=== PATIENT | male | born 1965 | race Caucasian/White ===

== ENCOUNTER 2018-12-16 11:07 | Emergency (ER) | payer BC, OTHER ==
[2018-12-16 12:34] LABS: #Basophils 0.1 thou/uL (0.0-0.2); #Eosinphils 0.2 thou/uL (0.0-0.7); #Lymphocytes 2.5 thou/uL (1.20-3.40); #Monocytes 0.6 thou/uL (0.11-0.59); #Neutrophils 6.6 thou/uL (1.40-6.50); %Basophils 0.9 % (0.0-1.0); %Eosinophils 2.1 % (0.0-10.0); %Lymphocytes 24.9 % (21.0-51.0); %Monocytes 5.7 % (0.0-10.0); %Neutrophils 66.4 % (42.0-75.0); Hemoglobin 16.3 g/dL (14.0-18.0); Mean Corpuscular HGB CONC 32.1 g/dL (32.0-36.0); Mean Corpuscular Hemoglobin 29.7 pg (27.0-31.0); Mean Corpuscular Volume 92.4 fL (78.0-98.0); Mean Platelet Volume 7.9 fL (7.4-10.4); Platelet Count 220 thou/uL (130-400); RBC Distribution Width 12.7 % (11.5-14.5); White Blood Cell (WBC) Count 9.9 thou/uL (4.8-10.8)
--- NOTE | 2018-12-16 15:22 | MRI ---
MRI LUMBAR SPINE WITHOUT CONTRAST: Date: 12/16/18 Multiplanar, multisequential imaging lumbar spine obtained. INDICATION: Low back pain. Bilateral leg weakness and pain. FINDINGS: Lumbar vertebra maintain normal height. Vertebral body signal appears normal. There is mild loss of d isc space at the L1-2 level. The other disc spaces are preserved. There are mild end plate deformitie s seen at T12-L1, L1-2, L2-3, and L3-4 levels. At L1-2, there is no significant disc bulge or protrusion. No central canal or foraminal stenosis. At L2-3, there is no disc bulge or protrusion. Mild facet arthrosis. No central canal or foraminal st enosis. At L3-4, there is no significant disc bulge or protrusion. Mild facet arthrosis and hypertrophy. No c entral canal or foraminal stenosis. At L4-5, there is no significant disc bulge or protrusion. Mild facet arthrosis. No central canal or foraminal stenosis. At L5-S1, there is mild disc bulge. No evidence of disc protrusion. Mild facet arthrosis. No central canal or foraminal stenosis. Evidence of a small right renal cyst measuring 1.5 cm. IMPRESSION: Mild degenerative disc changes as described. No significant disc bulge or protrusion. There is mild f acet arthrosis throughout the lumbar spine; however, no central canal or foraminal stenosis identifie d. POS: [facility]
== END 2018-12-16 14:26 | disposition home or self-care (01) ==
LOC: ERS 11:07
DX: I70.213 Atherosclerosis of native arteries of extremities with intermittent claudication, bilateral legs (principal); F17.210 Nicotine dependence, cigarettes, uncomplicated
CPT/HCPCS: 72148; 85025

== ENCOUNTER 2019-01-05 07:21 | Outpatient (CLI) | payer OTHER ==
--- NOTE | 2019-01-05 10:07 | CT ---
CONTRAST ENHANCED CTA AORTA AND BILATERAL RUNOFF: HISTORY: Peripheral vascular disease. Claudication. FINDINGS: Contrast-enhanced CTA images abdomen and pelvis and runoff obtained. Two-D and 3D reconstructed imag es performed on an independent 3D work station. The lung bases are unremarkable. Some areas of lung parenchymal scarring are seen in the posterior a spect of the lower lobes. No evidence of free intraperitoneal air or fluid seen. The liver and spleen are unremarkable. The gallbladder and pancreas are unremarkable. Marked atherosclerotic calcification of the abdominal aorta and iliac arteries seen. There is distal infrarenal abdominal aortic atherosclerotic changes with calcified and noncalcified p laques. Extensive noncalcified plaque is seen reducing the caliber of the infrarenal abdominal aorta . The plaques extend into the right and left common iliac arteries. There is approximately 80% prox imal right common iliac and approximate 80% left common iliac artery stenosis at the origin of the ri ght and left common iliac arteries. Good flow is seen in the right and left external iliac, common femoral arteries, superficial femoral arteries, popliteal arteries, as well as anterior tibial, posterior tibial, and peroneal arteries chema aterally. The SMA, celiac, DEYA, and renal arteries bilaterally are patent. The kidneys are unremar kable. Small bowel and colon are unremarkable. The appendix is unremarkable. No evidence of osseous lesions seen. IMPRESSION: Circumferential distal abdominal aortic atherosclerosis with calcified extensive noncalcified atheros clerotic plaques. There is severe bilateral proximal common iliac artery stenosis in the proximalmos t aspect of the right and left common iliac arteries. POS: [facility]
[2019-01-05] MEDS ORDERED: Iopamidol 370 76% 100 ML VIAL ONE (11:56)
== END 2019-01-05 07:22 | disposition home or self-care (01) ==
LOC: CT 07:21
PROVIDERS: ATTEND Thoracic Surgery (Cardiothoracic Vascular Surgery)
DX: I73.9 Peripheral vascular disease, unspecified (principal); I70.0 Atherosclerosis of aorta
CPT/HCPCS: 75635; Q9967

== ENCOUNTER 2019-01-13 08:49 | Outpatient (CLI) | payer OTHER ==
[2019-01-13 09:35] LABS: Anion Gap 13 mmol/L (10-20); BUN (Urea Nitrogen) 18 mg/dL (8.4-25.7); Calc. Creatinine Clearance 0 mL/min (70-130); Calcium 9.7 mg/dL (7.8-10.44); Carbon Dioxide 26 mmol/L (22-29); Chloride 105 mmol/L (98-107); Estimated GFR-MDRD 68; Glucose 102 mg/dL (70-105); Potassium 4.9 mmol/L (3.5-5.1); Sodium 139 mmol/L (136-145)
== END 2019-01-13 08:50 | disposition home or self-care (01) ==
LOC: LABBT 08:49
PROVIDERS: ATTEND Thoracic Surgery (Cardiothoracic Vascular Surgery)
DX: Z01.812 Encounter for preprocedural laboratory examination (principal); I73.9 Peripheral vascular disease, unspecified
CPT/HCPCS: 80048

== ENCOUNTER 2019-01-19 09:58 | Day surgery (SDC) | payer OTHER ==
[2019-01-19 11:04] LABS: #Basophils 0.1 thou/uL (0.0-0.2); #Eosinphils 0.3 thou/uL (0.0-0.7); #Lymphocytes 2.1 thou/uL (1.20-3.40); #Monocytes 0.4 thou/uL (0.11-0.59); #Neutrophils 4.2 thou/uL (1.40-6.50); %Basophils 0.8 % (0.0-1.0); %Eosinophils 4.6 % (0.0-10.0); %Lymphocytes 29.9 % (21.0-51.0); %Monocytes 5.2 % (0.0-10.0); %Neutrophils 59.5 % (42.0-75.0); Mean Corpuscular HGB CONC 30.9 g/dL (32.0-36.0); Mean Corpuscular Hemoglobin 28.9 pg (27.0-31.0); Mean Corpuscular Volume 93.4 fL (78.0-98.0); Mean Platelet Volume 7.9 fL (7.4-10.4); Platelet Count 219 thou/uL (130-400); RBC Distribution Width 12.7 % (11.5-14.5); Red Blood Cell (RBC) Count 5.89 mill/uL (4.70-6.10); White Blood Cell (WBC) Count 7.1 thou/uL (4.8-10.8)
[2019-01-19 11:24] LABS: Anion Gap 14 mmol/L (10-20); BUN (Urea Nitrogen) 17 mg/dL (8.4-25.7); Calc. Creatinine Clearance 0 mL/min (70-130); Calcium 9.7 mg/dL (7.8-10.44); Carbon Dioxide 23 mmol/L (22-29); Chloride 106 mmol/L (98-107); Estimated GFR-MDRD 74; Glucose 93 mg/dL (70-105); Potassium 4.4 mmol/L (3.5-5.1); Sodium 139 mmol/L (136-145)
[2019-01-19] MEDS ORDERED: Nitroglycerin 100MG/250ML BOT 0 ML ONE (11:50)
[2019-01-19] MEDS ORDERED: Heparin 0 ML ONE (11:50)
[2019-01-19] MEDS ORDERED: Heparin 10,000 UNITS/1 ML VIAL ONE (11:50)
[2019-01-19] MEDS ORDERED: Midazolam HCl 2 mg/2 ml Vial ONE (12:23)
[2019-01-19] MEDS ORDERED: Fentanyl 100 MCG/2 ML VIAL ONE ×3 (12:27→13:29)
[2019-01-19] MEDS ORDERED: Iopamidol 370 76% 50 ML VIAL FS ONE (14:20)
--- NOTE | 2019-01-19 15:15 | OP ---
DATE OF PROCEDURE: 01/19/2019 PREOPERATIVE DIAGNOSIS: Peripheral vascular disease with bilateral lower extremity rest pain. POSTOPERATIVE DIAGNOSIS: Peripheral vascular disease with bilateral lower extremity rest pain. PROCEDURES PERFORMED: 1. Ultrasound-guided bilateral femoral artery access. 2. Abdominal aortogram. 3. Left common iliac artery angiogram. 4. Right common iliac artery angiogram. 5. Left primary stenting of the common iliac artery with a 9 x 37 Express LD stent taken to 8 mmHg. 6. Right primary stenting with a 9 x 37 Express LD stent taken to 8 mmHg. TOTAL CONTRAST: 32 mL. FLUORO TIME: 6.4 minutes. DESCRIPTION OF PROCEDURE: After consent was obtained, the patient was brought to catheterization lab, placed in supine position on the laborer laboratory table. Appropriate monitoring was placed. The patient was given IV sedation consisting of 1 mg Versed and 25 mcg of fentanyl. The groins were prepped and draped in the usual sterile fashion. Using ultrasound guidance, the right common femoral artery was accessed and a 6-Cypriot marker sheath was placed into the common iliac artery. Hand-injected arteriogram was performed, confirming critical stenosis at the aortic bifurcation. The right common iliac artery was opened, but critical stenosis. The left common iliac artery was completely occluded. The sheath was passed over guidewire with the dilator into the abdominal aorta. Hand-injected aortogram was performed again confirming the location of the stenosis. Using ultrasound guidance, the left common femoral artery was accessed after anesthetizing with 1% lidocaine and a 6-Cypriot marker sheath passed into the external iliac artery. Hand-injected arteriogram was performed showing our area of occlusion. The occlusion was very short and was crossed with an angled Berenstein catheter and Bentson wire. Hand-injected arteriogram was performed in the aorta confirming intraluminal location. The 6-Cypriot sheath was passed over the guidewire into the abdominal aorta. After measuring, a 9 x 37 stent was selected for each iliac artery. The sheaths were exchanged for 7-Cypriot sheath. The tips of the sheaths were positioned in the abdominal aorta. Stents were positioned and the sheath withdrawn back into the external iliac artery. Once the stents were appropriately positioned, they were slowly inflated until the stents were fixed with dog-boning of the balloon. They were then inflated to their nominal pressure of 8 mmHg. The balloons were deflated and the balloon deployment catheter was removed. Hand-injected aortograms showed an excellent result from the stenting with no residual stenosis and good stent apposition to the iliac wall throughout. ProGlide closure was performed bilaterally with good hemostasis. The patient tolerated the procedure well and was transferred to the recovery area in stable condition. He will be discharged to home later today. Job ID: [id number]
--- NOTE | 2019-01-19 18:37 | HP ---
DATE OF SERVICE: HISTORY OF PRESENT ILLNESS: Mr. Church is a 53-year-old gentleman, who has had chronic bilateral leg pain consistent with claudication, which has progressed and now having rest pain. He came to the emergency department seeking therapeutic help. PAST MEDICAL HISTORY: None. PAST SURGICAL HISTORY: Deviated septum surgery. SOCIAL HISTORY: He smokes a pack of cigarettes a day. ALLERGIES: NONE. MEDICATIONS: None. PHYSICAL EXAMINATION: VITAL SIGNS: Heart rate is 80 and regular. Blood pressure is 160/70. LUNGS: Clear bilaterally. HEART: Rhythm is regular. ABDOMEN: Soft and nontender. EXTREMITIES: No edema. VASCULAR: He has palpable carotid and radial pulses bilaterally. Femorals are dopplerable. I reviewed his CTA, which shows aortoiliac occlusive disease and he needs angiograms and potential kissing iliac stents. Discussed this with the patient. He is agreeable to proceed and signed. Job ID: [id number]
== END 2019-01-19 16:03 | disposition home or self-care (01) ==
LOC: ERS 09:58 → CCL 12:00
PROVIDERS: ATTEND Thoracic Surgery (Cardiothoracic Vascular Surgery)
PROC: 04VC3DZ Restriction of Right Common Iliac Artery with Intraluminal Device, Percutaneous Approach (ICD-10-PCS; principal; 2019-01-19)
PROC: 04VD3DZ Restriction of Left Common Iliac Artery with Intraluminal Device, Percutaneous Approach (ICD-10-PCS; principal; 2019-01-19)
DX: I70.223 Atherosclerosis of native arteries of extremities with rest pain, bilateral legs (principal); E78.5 Hyperlipidemia, unspecified; I10 Essential (primary) hypertension; F17.210 Nicotine dependence, cigarettes, uncomplicated
CPT/HCPCS: 37220; 37221; 37222; 37223; 76942; 80048; 85025; 99152; C1760; C1769; C1876; J1644; J2250; J3010; Q9967

== ENCOUNTER 2020-08-31 06:32 | Outpatient (CLI) | payer OTHER ==
--- NOTE | 2020-08-29 22:47 | CON ---
DATE OF CONSULTATION: PREOPERATIVE HISTORY AND PHYSICAL HISTORY OF PRESENT ILLNESS: Mr. Church is a 55-year-old gentleman, who has history of peripheral vascular disease. He is status post bilateral kissing iliac stents in 2019. After initial good results, he has had continued progression of his claudication. He now has left leg claudication at minimal distances. He has no right leg symptoms. He has had no rest pain. Continues to smoke cigarettes. He underwent CT angiogram, which shows in-stent restenoses bilaterally. We discussed in-stent restenoses and made plans for aortobifemoral bypass. He also has aortic stenosis with soft plaque in his aorta. PAST MEDICAL HISTORY: 1. Peripheral vascular disease. 2. Dyslipidemia. PAST SURGICAL HISTORY: 1. Left rotator cuff repair. 2. Kissing iliac stents. SOCIAL HISTORY: He continues to smoke. He does not use alcohol. ALLERGIES: NONE. CURRENT MEDICATIONS: Aspirin 325 mg daily. PHYSICAL EXAMINATION: GENERAL: This is a well-developed, well-nourished man, resting comfortably. VITAL SIGNS: Temperature is 98.6, pulse is 70 and regular, and blood pressure is 142/82. Height is 6 feet 1 inch, weight is 207 pounds. HEENT: Sclerae nonicteric. Pupils are equal and round bilaterally. NECK: Supple without bruit. He has no adenopathy. HEART: Rhythm is regular without murmur. LUNGS: Clear to auscultation bilaterally. ABDOMEN: Soft and nontender. There are no scars. No masses. EXTREMITIES: There is no edema. VASCULAR: He has palpable carotid and radial pulses bilaterally. Femoral pulses are lightly palpable. ASSESSMENT AND PLAN: I have discussed aortobifemoral bypass with him. He is agreeable to proceed. We will make plans early September. Job ID: [id number]
--- NOTE | 2020-08-31 11:14 | RAD ---
Chest 2 views HISTORY: Preop. FINDINGS: No comparison. Cardiac silhouette and pulmonary vasculature are unremarkable. Mediastinum is midline. No confluent airspace consolidation, pneumothorax, or pleural fluid. Calcified granulomata are consistent with healed granulomatous disease. Irregularity at the lateral a spect of the right clavicle may represent an old injury. IMPRESSION : No active cardiopulmonary abnormalities are demonstrated.
[2020-08-31 11:45] LABS: Hemoglobin 16.6 g/dL (14.0-18.0); Mean Corpuscular HGB CONC 33.9 G/DL (32.0-36.0); Mean Corpuscular Hemoglobin 31.3 PG (27.0-33.0); Mean Corpuscular Volume 92.1 fl (80.0-100.0); Mean Platelet Volume 10.1 fl (7.4-10.4); Platelet Count 251 10x3/uL (130-400); RBC Distribution Width 13.5 % (11.5-14.5); Red Blood Cell (RBC) Count 5.31 10x6/uL (4.40-5.80); White Blood Cell (WBC) Count 8.4 10x3/uL (4.5-11.0)
[2020-08-31 11:57] LABS: Anion Gap 13 mmol/L (10-20); BUN (Urea Nitrogen) 20 mg/dL (8.4-25.7); Calc. Creatinine Clearance 0 mL/min (70-130); Calcium 9.3 mg/dL (7.8-10.44); Carbon Dioxide 26 mmol/L (22-29); Chloride 108 mmol/L (98-107); Estimated GFR-MDRD 69; Glucose 96 mg/dL (70-105); Potassium 5.1 mmol/L (3.5-5.1); Sodium 142 mmol/L (136-145)
[2020-08-31 17:05] LABS: SARS-CoV-2 MS2 Positive; SARS-CoV-2 N Gene Negative; SARS-CoV-2 S Gene Negative; SARS-CoV-2 by NAA Not Detected (NotDetected); SARS-CoV-2 orf1ab Negative
== END 2020-08-31 06:33 | disposition home or self-care (01) ==
LOC: LABBT 06:32
PROVIDERS: ATTEND Thoracic Surgery (Cardiothoracic Vascular Surgery)
DX: Z01.818 Encounter for other preprocedural examination (principal); Z20.828 Contact with and (suspected) exposure to other viral communicable diseases; I73.9 Peripheral vascular disease, unspecified; I74.09 Other arterial embolism and thrombosis of abdominal aorta
CPT/HCPCS: 71046; 80048; 85027; 87635; U0003

== ENCOUNTER 2020-08-31 10:30 | Inpatient (IN) | payer OTHER ==
[2020-09-05] MEDS ORDERED: Bupivacaine PF 0.5% 30 ML VIAL ONE (06:39)
[2020-09-05] MEDS ORDERED: Heparin 5,000 UNITS/ML VIAL ONE (06:39)
[2020-09-05] MEDS ORDERED: EPINEPHrine 1 MG/ML AMP ONE (06:39)
[2020-09-05] MEDS ORDERED: Protamine Sulfate 50 MG/5 ML VIAL ONE (06:39)
[2020-09-05] MEDS ORDERED: Heparin 10,000 UNITS/1 ML VIAL 30,000 UNITS in Sodium Chloride 0.9% 1,000 ML IVPB SCH (06:45)
[2020-09-05] MEDS ORDERED: Phenylephrine 10 MG/ML VIAL ONE (07:17)
[2020-09-05] MEDS ORDERED: Fentanyl 100 MCG/2 ML VIAL ONE ×3 (07:17→11:55)
[2020-09-05] MEDS ORDERED: Naloxone HCl 0.4 mg/ml Vial IV PRN (10:05)
[2020-09-05] MEDS ORDERED: fentaNYL Citrate/PF 2,000 MCG in Sodium Chloride 0.9% 60 ML IV PRN (10:05)
[2020-09-05] MEDS ORDERED: diphenhydrAMINE 50 MG/ML VIAL IM PRN (10:05)
[2020-09-05] MEDS ORDERED: Zolpidem Tartrate 5 MG TAB PO PRN (10:05)
[2020-09-05] MEDS ORDERED: Ondansetron HCl/PF 4 MG/2 ML Vial IVP PRN (10:05)
[2020-09-05] MEDS ORDERED: Ondansetron PF 4 MG/2 ML Vial IVP PRN ×2 (10:05→11:09)
[2020-09-05] MEDS ORDERED: Promethazine HCl 25 MG/ML VIAL SLOW IVP PRN (10:05)
[2020-09-05] MEDS ORDERED: diphenhydrAMINE 50 MG/ML VIAL IVP PRN (10:05)
[2020-09-05] MEDS ORDERED: HYDROmorphone 2 MG/ML VIAL SLOW IVP PRN (10:05)
[2020-09-05] MEDS ORDERED: diphenhydrAMINE 25 MG CAP PO PRN (10:05)
[2020-09-05] MEDS ORDERED: Promethazine HCl 25 MG/ML VIAL IM PRN ×2 (10:05)
[2020-09-05] MEDS ORDERED: HYDROmorphone 0.5 MG/0.5 ML SYRINGE ONE ×3 (10:10→11:24)
[2020-09-05] MEDS ORDERED: Communication Order-Pharmacy FS PRN (10:15)
[2020-09-05] MEDS ORDERED: Phenylephrine 40 MG in Sodium Chloride 0.9% 250 ML 246 ML IVPB PRN (11:09)
[2020-09-05] MEDS ORDERED: hydrALAZINE 20 MG/ML VIAL SLOW IVP PRN (11:09)
[2020-09-05] MEDS ORDERED: Nitroglycerin 50 MG/250 ML BOT 250 ML IVPB PRN (11:09)
[2020-09-05] MEDS ORDERED: traMADol HCl 50 MG TAB PO PRN ×2 (11:09)
[2020-09-05] MEDS ORDERED: Acetaminophen 325 MG TAB PO PRN (11:09)
[2020-09-05 13:32] VITALS: BMI 27.6
[2020-09-05] MEDS ORDERED: Glycopyrrolate 0.2 MG/ML 5 ML SYRINGE ONE (13:38)
[2020-09-05] MEDS ORDERED: PROPOFOL 200 MG/20 ML VIAL ONE (13:38)
[2020-09-05] MEDS ORDERED: PHENYLEPHRINE-NS 100 MCG/ML 10 ML SYRINGE ONE (13:38)
[2020-09-05] MEDS ORDERED: ePHEDrine 50 MG/ML VIAL ONE (13:38)
[2020-09-05] MEDS ORDERED: Ondansetron PF 4 MG/2 ML Vial ONE (13:38)
[2020-09-05] MEDS ORDERED: Rocuronium Bromide 10 MG/ML (10ML VIAL) ONE (13:38)
[2020-09-05] MEDS ORDERED: Dexamethasone 20 MG/5 ML VIAL ONE (13:38)
[2020-09-05] MEDS ORDERED: Ketorolac Tromethamine 30 MG/ML VIAL ONE (13:38)
[2020-09-05] MEDS ORDERED: Lidocaine 1% PF 5 ML VIAL ONE (13:38)
[2020-09-05] MEDS: CEFAZOLIN 2 GM in Premix Bag 1 BAG IVPB SCH (15:31)
[2020-09-05] MEDS: Sodium Chloride 0.9% 1,000 ML IV SCH (15:32)
[2020-09-06] MEDS: CEFAZOLIN 2 GM in Premix Bag 1 BAG IVPB SCH ×2 (00:03→08:03)
[2020-09-06] MEDS: Sodium Chloride 0.9% 1,000 ML IV SCH ×3 (02:39→14:55)
[2020-09-06 03:57] LABS: #Basophils 0.1 thou/uL (0.0-0.2); #Lymphocytes 1.9 thou/uL (1.20-3.40); %Basophils 0.8 % (0.0-1.0); %Eosinophils 0.2 % (0.0-10.0); %Lymphocytes 17.1 % (21.0-51.0); %Monocytes 9.4 % (0.0-10.0); %Neutrophils 72.5 % (42.0-75.0); Hemoglobin 14.7 g/dL (14.0-18.0); Mean Corpuscular HGB CONC 33.2 g/dL (32.0-36.0); Mean Corpuscular Hemoglobin 30.9 pg (27.0-31.0); Mean Corpuscular Volume 93.1 fL (78.0-98.0); Mean Platelet Volume 7.4 fL (7.4-10.4); Platelet Count 215 thou/uL (130-400); RBC Distribution Width 12.6 % (11.5-14.5); Red Blood Cell (RBC) Count 4.75 mill/uL (4.70-6.10)
[2020-09-06 04:25] LABS: Anion Gap 13 mmol/L (10-20); BUN (Urea Nitrogen) 18 mg/dL (8.4-25.7); Calc. Creatinine Clearance 97 mL/min (70-130); Calcium 8.2 mg/dL (7.8-10.44); Carbon Dioxide 23 mmol/L (22-29); Chloride 103 mmol/L (98-107); Estimated GFR-MDRD 66; Glucose 113 mg/dL (70-105); Potassium 4.3 mmol/L (3.5-5.1); Sodium 135 mmol/L (136-145)
--- NOTE | 2020-09-06 07:14 | OP ---
DATE OF PROCEDURE: 09/05/2020 PREOPERATIVE DIAGNOSIS: Aortoiliac occlusive disease. POSTOPERATIVE DIAGNOSIS: Aortoiliac occlusive disease. PROCEDURE PERFORMED: Aortobifemoral bypass utilizing a 14 x 7 Hemashield bifurcated graft. HOME APPLIANCE INSTALLER: Khris Jenkins MD ANESTHESIA: General endotracheal by Phani Gonzalez MD ESTIMATED BLOOD LOSS: 150 mL. CELL SAVER: 240 mL. CRYSTALLOID: 1200 mL. DESCRIPTION OF PROCEDURE: After consent was obtained, the patient was brought to the operating room and placed in supine position on the operating table. Appropriate central line and monitors were placed. General endotracheal anesthesia was induced. Abdomen and upper thighs were prepped and draped in usual sterile fashion. Skin incision was made on the abdomen. Dissection through the fascia was obtained with electrocautery. Peritoneum was entered and peritoneal incision extended. [place] and [place] retractors were placed. Duodenum was mobilized off the anterior wall of the aorta. Retroperitoneum was entered. The aorta and iliac bifurcation exposed. My initial plan had been to stay in his belly and do iliac anastomosis at the anastomoses. Both iliac arteries were followed down to their bifurcation and they were heavily calcified. Therefore, I aborted this. Groins were exposed. Common femoral arteries were dissected free. A tunnel was created under the inguinal ligament and ring clamp past in the abdomen. The patient was systemically heparinized. After 3 minutes, distal aorta was clamped. Proximal aorta was clamped. The aorta was divided distally and sewn off with 3-0 Prolene. DEYA was not patent. It was clipped. The aortotomy was extended proximally to just below the accessory renal arteries. A 14 x 7 Hemashield graft was prepared for anastomosis. Proximal anastomosis was created with running 3-0 Prolene suture. One pledgeted 3-0 Prolene suture was placed at the anterior portion of the anastomosis for hemostasis. On release of the clamp, there was good hemostasis. Limbs were then tunneled down into the groins. Right femoral was approached first. Common femoral was clamped proximally and distally. A running 5-0 Prolene anastomosis was created between graft and femoral artery. On release of the clamps, good hemostasis. Antegrade flow was reestablished down the right leg. The left limb of the graft was clamped. The left side was then approached in a similar fashion with a running 5-0 Prolene suture. Anastomosis created between the graft and femoral artery. On release of clamp, there was good hemostasis. 75 mg of protamine was given. Hemostasis was ensured. The abdomen was copiously irrigated. The graft was re-retroperitonealized with running 2-0 Prolene suture. Abdominal contents were brought back in anatomic position. Anterior fascia was closed with a running looped #1 PDS. Wounds were then irrigated and closed in layers. Dermabond was applied to the skin. Groins were irrigated, assured of hemostasis, closed in layers, and Dermabond applied to skin. The patient was awakened, extubated, and transferred to the intensive care unit in stable condition. Job ID: [id number]
[2020-09-06] MEDS: Aspirin Chewable 81 MG TAB PO SCH (08:03)
[2020-09-06] MEDS ORDERED: FLU VACC QS2020-21(6MOS UP)/PF 60 MCG/0.5 ML SYRINGE IM ONE (09:00)
[2020-09-06 16:29] LABS: Actual Bicarbonate (HCO3a) 22.4 mEq/L (22-28); Analyzer IN Cardio OR; Base Excess (BEa) -4.9 mEq/L (-2.0 to +3.0); CO2 Tension 49.9 mmHg (35.0-45.0); Calcium, Ionized (arterial) 1.16 mmol/L (1.12-1.30); Hemoglobin (Hb) 15.2 g/dL (14.0-18.0); Potassium - ABG Lab 4.33 mmol/L (3.70-5.30); Puncture Site Arterial Line; pH, Arterial 7.27 (7.35-7.45)
[2020-09-07] MEDS: Aspirin Chewable 81 MG TAB PO SCH (08:25)
[2020-09-07] MEDS ORDERED: HYDROcodone/Acetaminophen 10/325 mg Tablet PO PRN (10:36)
[2020-09-07 18:28] VITALS: BP 134/68; TEMP 98.3
--- NOTE | 2020-09-08 01:26 | DIS ---
DATE OF ADMISSION: 09/05/2020 DATE OF DISCHARGE: 09/07/2020 DIAGNOSIS: Aortoiliac occlusive disease. PROCEDURE: Aortobifemoral bypass with a 14 x 7 bifurcated Hemashield graft. DESCRIPTION OF HOSPITAL STAY: Mr. Church is a 55-year-old gentleman, who had severe aortoiliac occlusive disease. He underwent bypass as above. He has done well postoperatively, being discharged to home. At the time of discharge, he is tolerating oral diet, having good bowel and bladder function. Incisions are clean and dry. He has been instructed to shower daily. He is not to do any heavy lifting or driving at this time. DISCHARGE MEDICATIONS: Include: 1. Aspirin 81 mg daily. 2. Tramadol 50 mg 1 to 2 q.6 hours p.r.n. pain. FOLLOWUP: Follow up is with me in 2 weeks. Job ID: [id number]
== END 2020-09-07 19:00 | disposition home or self-care (01) | DRG 271 ==
LOC: SURG A 09-05 06:01 → EDSTATUS 09-05 10:40 → CCU 09-05 12:25 → SURG A 09-06 18:19
PROVIDERS: ADMIT Thoracic Surgery (Cardiothoracic Vascular Surgery); ATTEND Thoracic Surgery (Cardiothoracic Vascular Surgery)
PROC: 04100JK Bypass Abdominal Aorta to Bilateral Femoral Arteries with Synthetic Substitute, Open Approach (ICD-10-PCS; principal; 2020-09-05)
DX: I74.09 Other arterial embolism and thrombosis of abdominal aorta (principal); T82.856A Stenosis of peripheral vascular stent, initial encounter; E78.5 Hyperlipidemia, unspecified; Z79.82 Long term (current) use of aspirin; Z87.891 Personal history of nicotine dependence; G47.30 Sleep apnea, unspecified
CPT/HCPCS: 36415; 36416; 80048; 82805; 85025; 86850; 86900; 86901; J0171; J0690; J1100; J1170; J1642; J1644; J1885; J2370; J2405; J2550; J2704; J2720; J3010; J3490; J7050; S0020

== ENCOUNTER 2024-03-22 22:12 | Inpatient (IN) | payer BC, OTHER ==
[2024-03-22 23:23] LABS: #Basophils 0.05 10x3/uL (0.0-0.2); %Basophils 0.4 % (0.0-1.0); %Eosinophils 1.7 % (0.0-10.0); %Lymphocytes 11.3 % (21.0-51.0); %Monocytes 6.3 % (0.0-10.0); %Neutrophils 79.8 % (42.0-75.0); Hematocrit 47.4 % (42.0-52.0); Hemoglobin 16.2 g/dL (14.0-18.0); Mean Corpuscular HGB CONC 34.2 g/dL (32.0-36.0); Mean Corpuscular Hemoglobin 31.4 pg (27.0-31.0); Mean Corpuscular Volume 91.9 fL (78.0-98.0); Mean Platelet Volume 9.7 fL (7.4-10.4); Platelet Count 247 10x3/uL (130-400); RBC Distribution Width 13.7 % (11.5-14.5); Red Blood Cell (RBC) Count 5.16 mill/uL (4.70-6.10)
[2024-03-22 23:43] LABS: Alcohol Less than 10.0 mg/dL (Less than 10)
[2024-03-22 23:46] LABS: ALT (SGPT) 14 U/L (8-55); AST (SGOT) 13 U/L (5-34); Albumin 3.6 g/dL (3.5-5.0); Alkaline Phosphatase 67 U/L (40-110); Anion Gap 15 mmol/L (10-20); BUN (Urea Nitrogen) 18 mg/dL (8.4-25.7); Bilirubin, Total 0.6 mg/dL (0.2-1.2); Calc. Creatinine Clearance 0 mL/min (70-130); Carbon Dioxide 19 mmol/L (22-29); Chloride 111 mmol/L (98-107); Estimated GFR 68; Globulin 2.7 g/dL (2.4-3.5); Glucose 88 mg/dL (70-105); Lipase 26 U/L (8-78); Protein, Total 6.3 g/dL (6.0-8.3); Sodium 141 mmol/L (136-145)
[2024-03-22 23:52] LABS: Troponin I Less than 0.010 ng/mL (< 0.028)
[2024-03-23] MEDS ORDERED: Nitroglycerin 0.4 MG TAB (25 Tab Bottle) SL PRN (02:06)
[2024-03-23] MEDS ORDERED: Acetaminophen 325 MG TAB PO PRN (02:14)
[2024-03-23] MEDS ORDERED: Ondansetron PF 4 MG/2 ML Vial IVP PRN (02:14)
[2024-03-23] MEDS ORDERED: Ondansetron ODT 4 MG TAB PO PRN (02:14)
[2024-03-23 11:15] LABS: Troponin I Less than 0.010 ng/mL (< 0.028)
[2024-03-23] MEDS ORDERED: Nicotine 14 MG PATCH ONE (11:28)
[2024-03-23] MEDS ORDERED: Aspirin Chewable 81 MG TAB ONE (11:49)
[2024-03-23] MEDS ORDERED: Famotidine 20 MG TAB ONE (11:49)
[2024-03-23 12:04] VITALS: BMI 29.0
[2024-03-23] MEDS: Famotidine 20 MG TAB PO SCH (12:06)
[2024-03-23] MEDS: Aspirin 81 mg Enteric Coated Tablet PO SCH (12:06)
[2024-03-23] MEDS: Famotidine/PF 20 mg/2ml Vial SLOW IVP SCH (12:07)
[2024-03-23] MEDS: TICAGRELOR 90 MG TABLET PO SCH (12:32)
[2024-03-23 15:11] LABS: Troponin I 0.012 ng/mL (< 0.028)
[2024-03-23] MEDS: Atorvastatin Calcium 20 MG TAB PO SCH (20:18)
[2024-03-24 04:03] LABS: #Basophils 0.05 10x3/uL (0.0-0.2); %Basophils 0.7 % (0.0-1.0); %Eosinophils 4.8 % (0.0-10.0); %Lymphocytes 40.5 % (21.0-51.0); %Neutrophils 45.6 % (42.0-75.0); Hematocrit 44.3 % (42.0-52.0); Hemoglobin 15.2 g/dL (14.0-18.0); Mean Corpuscular HGB CONC 34.3 g/dL (32.0-36.0); Mean Corpuscular Volume 90.2 fL (78.0-98.0); Mean Platelet Volume 10.1 fL (7.4-10.4); Platelet Count 224 10x3/uL (130-400); RBC Distribution Width 13.8 % (11.5-14.5); Red Blood Cell (RBC) Count 4.91 mill/uL (4.70-6.10)
[2024-03-24 05:21] LABS: Anion Gap 13 mmol/L (10-20); BUN (Urea Nitrogen) 19 mg/dL (8.4-25.7); Calc. Creatinine Clearance 83 mL/min (70-130); Carbon Dioxide 22 mmol/L (22-29); Chloride 108 mmol/L (98-107); Estimated GFR 60; Glucose 108 mg/dL (70-105); Potassium 4.3 mmol/L (3.5-5.1); Sodium 139 mmol/L (136-145)
[2024-03-24] MEDS: Nicotine 14 MG PATCH TD PRN (18:00)
[2024-03-24] MEDS: Atorvastatin Calcium 40 MG TAB PO SCH (21:17)
[2024-03-24 23:07] VITALS: BP 125/75; TEMP 97.7
== END 2024-03-25 12:37 | disposition home or self-care (01) | DRG 312 ==
LOC: ERS 22:12 → ERHOLD 03-23 01:38 → 2SE 03-23 13:51 → OBSVTOIN 03-24 07:51
PROVIDERS: ADMIT Student in an Organized Health Care Education/Training Program; ATTEND Internal Medicine
DX: R55 Syncope and collapse (principal); E78.5 Hyperlipidemia, unspecified; I25.10 Atherosclerotic heart disease of native coronary artery without angina pectoris; F17.210 Nicotine dependence, cigarettes, uncomplicated; Z79.82 Long term (current) use of aspirin; Z79.891 Long term (current) use of opiate analgesic; I25.2 Old myocardial infarction; Z98.2 Presence of cerebrospinal fluid drainage device
CPT/HCPCS: 36415; 70450; 71045; 80048; 80053; 80307; 83690; 84484; 85025; 93005; 93306; 93880; G0378